=== PATIENT | male | born 1955 | race Caucasian/White ===

== ENCOUNTER 2019-02-02 12:11 | Observation (INO) ==
--- NOTE | 2019-02-02 12:23 | Emergency Department Note ---
Disposition Clinical Impression: Hypernatremia Chest pain Qualifiers: Chest pain type: unspecified Qualified Code(s): R07.9 - Chest pain, unspecified Disposition: Admitted As Inpatient Time of Disposition: 20:22 General Adult HPI - General Stated complaint: chest pain Time Seen by Provider: 02/02/19 12:21 - Related Data Home Medications Medication Instructions Recorded Confirmed Aspirin [Adult Aspirin] 81 mg PO DAILY 02/02/19 02/02/19 Atorvastatin [Lipitor] 80 mg PO HS 02/02/19 02/02/19 Clopidogrel [Plavix] 75 mg PO DAILY 02/02/19 02/02/19 Lisinopril [Zestril] 20 mg PO BID 02/02/19 02/02/19 Metoprolol [Lopressor] 50 mg PO DAILY 02/02/19 02/02/19 Omeprazole [PriLOSEC] 40 mg PO BID 02/02/19 02/02/19 Ranolazine [Ranexa] 1,000 mg PO BID 02/02/19 02/02/19 hydroCHLOROthiazide 25 mg PO DAILY 02/02/19 02/02/19 [Hydrochlorothiazide] Allergies Allergy/AdvReac Type Severity Reaction Status Date / Time No Known Allergies Allergy Verified 12/12/18 16:36 Past Medical History - Past Medical History Medical history: Reports: no medical history Psychiatric history: Reports: no psych history - Social History Smoking Status: Current every day smoker Smokeless Tobacco Status: No Alcohol use: Reports: none Drug use: Reports: none Course Vital Signs Temperature 98.3 F 02/02/19 12:34 Pulse Rate 63 02/02/19 12:34 Respiratory Rate 18 02/02/19 12:34 Blood Pressure 116/76 02/02/19 12:34 O2 Sat by Pulse Oximetry 97 02/02/19 12:34 Temperature 98.0 F 02/02/19 19:38 Pulse Rate 90 02/02/19 19:38 Respiratory Rate 16 02/02/19 19:38 Blood Pressure 103/62 02/02/19 19:38 O2 Sat by Pulse Oximetry 92 02/02/19 19:38 Oxygen Delivery Oxygen Delivery Room Air Medical Decision Making - Lab Data Result diagrams: 02/02/19 12:44 02/02/19 15:47 Lab Results 02/02/19 02/02/19 02/02/19 Range/Units 12:44 12:44 12:44 WBC 9.2 (4.3-11.1) K/mcL RBC 4.03 L (4.19-5.50) M/mcL Hgb 13.1 (12.9-16.9) g/dL Hct 37.4 L (37.5-50.1) % MCV 92.8 (83.0-100.0) fL MCH 32.5 (28.0-33.3) pg MCHC 35.0 (31.6-35.5) g/dL RDW 12.1 (11.5-14.5) % Plt Count 268 (140-400) K/mcL MPV 10.1 (9.4-12.4) fL Immature Gran % 0.9 (0-4) % Seg Neutrophils % 65.8 % Lymphocytes % 16.5 % Monocytes % 12.6 % Eosinophils % 3.4 % Basophils % 0.8 % Neutrophils # 6.1 (1.6-8.9) K/mcL Lymphocytes # 1.5 (0.6-4.6) K/mcL Monocytes # 1.2 (0.0-1.3) K/mcL Eosinophils # 0.3 (0.0-0.6) K/mcL Basophils # 0.1 (0.0-0.2) K/mcL Sodium 150 H (136-145) mEq/L Potassium 3.5 (3.5-5.1) mEq/L Chloride 75 L (98-107) mEq/L Carbon Dioxide 17 L (23-29) mEq/L BUN 15 (8-23) mg/dL Creatinine 0.89 (0.70-1.30) mg/dL Est GFR ( Amer) > 60 (> 60) Est GFR (Non-Af Amer) > 60 (> 60) BUN/Creatinine Ratio 17 (6-26) Glucose 82 (70-105) mg/dL Calculated Osmolality 310 H (280-300) Calcium 6.7 L (8.6-10.3) mg/dL Troponin I < 0.03 (< 0.04) ng/mL Lyme Total Antibody Negative (Negative) Attestation Statement - Attestation Attestation: I reviewed the residents documentation and agree with the residents assessment and plan of care. I have personally had face to face time with the patient. (Brief History, Brief Exam, and MDM) I personally supervised and was present for the resendiz/critical portions of the following procedures completed by the resident: (add procedures performed here). [id number] time provided I attest karriems supervising the resident physician's interpretation of the ECG. Patient presents by private vehicle chest discomfort. Known previous history of coronary artery disease. Appears in no acute distress on exam. EKG reviewed upon arrival
[2019-02-02] MEDS ORDERED: Aspirin 81 MG TAB.CHEW PO ONE (12:25)
[2019-02-02] MEDS ORDERED: Nitroglycerin 0.4 MG TAB.SUBL SL PRN (12:25)
--- NOTE | 2019-02-02 12:30 | Emergency Department Note ---
Disposition Clinical Impression: Hypernatremia Chest pain Qualifiers: Chest pain type: unspecified Qualified Code(s): R07.9 - Chest pain, unspecified Disposition: Admitted As Inpatient Referrals: Damion Santana DO [Primary Care Provider] - Time of Disposition: 14:15 General Adult HPI - General Stated complaint: chest pain Time Seen by Provider: 02/02/19 12:21 Source: patient Mode of arrival: ambulatory Limitations: no limitations Nursing Notes Reviewed: Yes Vital Signs Reviewed: Yes - History of Present Illness HPI Narrative: 63M with PMHx of CAD with 7 stents placed, the last being in March 2018, AAA with surgery and revision done several years ago, presents to the emergency department with chest and abdominal pain. Patient states that he has been feeling as though he had the flu over the past week with some headaches and neck pain that began experiencing chest pain earlier this morning. He also has been having some lower abdominal pain which was similar to before his AAA revision and he is worried about possible occlusion of his iliac arteries again. He has been having some intermittent right foot numbness with this abdominal pain. Patient has been feeling diaphoretic but denies nausea and vomiting. He has felt more short of breath than usual also. Patient took a baby aspirin prior to arrival along with his morning medications but has not taken a nitroglycerin today. - Related Data Home Medications Medication Instructions Recorded Confirmed Aspirin [Adult Aspirin] 81 mg PO DAILY 02/02/19 02/02/19 Atorvastatin [Lipitor] 80 mg PO HS 02/02/19 02/02/19 Clopidogrel [Plavix] 75 mg PO DAILY 02/02/19 02/02/19 Lisinopril [Zestril] 20 mg PO BID 02/02/19 02/02/19 Metoprolol [Lopressor] 50 mg PO DAILY 02/02/19 02/02/19 Omeprazole [PriLOSEC] 40 mg PO BID 02/02/19 02/02/19 Ranolazine [Ranexa] 1,000 mg PO BID 02/02/19 02/02/19 hydroCHLOROthiazide 25 mg PO DAILY 02/02/19 02/02/19 [Hydrochlorothiazide] Allergies Allergy/AdvReac Type Severity Reaction Status Date / Time No Known Allergies Allergy Verified 12/12/18 16:36 All systems ED: reviewed and negative except as stated. Review of Systems: As Per HPI Constitutional: Reports: weakness. Denies: fever, chills Cardiovascular: Reports: chest pain, dyspnea on exertion. Denies: palpitations Respiratory: Reports: dyspnea. Denies: cough, wheezes Gastrointestinal: Reports: abdominal pain. Denies: nausea, vomiting Musculoskeletal: Denies: back pain, neck pain Integumentary: Denies: rash Neurological: Reports: numbness. Denies: headache Endocrine: Reports: fatigue Past Medical History - Past Medical History Attestation: Yes The following information was validated with the patient. Source: patient Medical history: Reports: aortic aneurysm, coronary artery disease Psychiatric history: Reports: no psych history - Social History Smoking Status: Current every day smoker Smokeless Tobacco Status: No Alcohol use: Reports: none Drug use: Reports: none Physical Exam - General Limitations: no limitations General appearance: alert, in no apparent distress - Head Head exam: atraumatic, normocephalic - Eye Eye exam: Present: normal appearance, PERRL, EOMI - ENT ENT exam: normal exam, normal oropharynx - Neck Neck exam: Present: normal inspection. Absent: tenderness - Chest Chest inspection: Present: normal inspection. Absent: tenderness, rash - Respiratory Respiratory exam: Present: normal lung sounds bilaterally. Absent: wheezes - Cardiovascular Cardiovascular exam: Present: regular rate, normal rhythm - Abdominal Exam Abdominal exam: Present: soft, Non-Tender. Absent: distention, guarding, rebound, rigidity - Extremities Exam Extremities exam: Present: normal inspection. Absent: tenderness, pedal edema - Neurological Exam Neurological exam: Present: alert, oriented X3 - Psychiatric Psychiatric exam: Present: normal affect, normal mood - Skin Skin exam: Present: warm, dry, intact Course Vital Signs Temperature 98.3 F 02/02/19 12:34 Pulse Rate 63 02/02/19 12:34 Respiratory Rate 18 02/02/19 12:34 Blood Pressure 116/76 02/02/19 12:34 O2 Sat by Pulse Oximetry 97 02/02/19 12:34 Temperature 98.3 F 02/02/19 12:34 Pulse Rate 65 02/02/19 12:49 Respiratory Rate 18 02/02/19 12:49 Blood Pressure 126/79 02/02/19 12:49 O2 Sat by Pulse Oximetry 97 02/02/19 12:49 Oxygen Delivery Oxygen Delivery Room Air Medical Decision Making - MDM Narrative Medical decision making narrative: Patient with extensive cardiac history presents emergency department with chest pain and shortness of breath. We will do a cardiac workup on the patient and administer nitroglycerin to see if this helps with his chest pain. Pt is also concerned for Lyme disease as he states he has been bitten by several ticks recently. 1345 - patient's lab work is within normal limits including a negative Lyme titer. No acute abnormalities on chest x-ray. EKG is unchanged from previous. His pain was relieved temporarily by the nitroglycerin but he states now it is starting to come back. We will plan on admission to the hospital for cardiac workup and further treatment of this chest pain. Patient is agreeable with this plan of care. Hospitalist has been paged. [phone] - pt has been accepted to the hospital by Dr. Claudio - Medical Records Medical records reviewed: Yes I reviewed the patient's medical records. - Lab Data Lab results reviewed: Yes I reviewed the patient's lab results. Result diagrams: 02/02/19 12:44 02/02/19 12:44 Lab Results 02/02/19 02/02/19 02/02/19 Range/Units 12:44 12:44 12:44 WBC 9.2 (4.3-11.1) K/mcL RBC 4.03 L (4.19-5.50) M/mcL Hgb 13.1 (12.9-16.9) g/dL Hct 37.4 L (37.5-50.1) % MCV 92.8 (83.0-100.0) fL MCH 32.5 (28.0-33.3) pg MCHC 35.0 (31.6-35.5) g/dL RDW 12.1 (11.5-14.5) % Plt Count 268 (140-400) K/mcL MPV 10.1 (9.4-12.4) fL Immature Gran % 0.9 (0-4) % Seg Neutrophils % 65.8 % Lymphocytes % 16.5 % Monocytes % 12.6 % Eosinophils % 3.4 % Basophils % 0.8 % Neutrophils # 6.1 (1.6-8.9) K/mcL Lymphocytes # 1.5 (0.6-4.6) K/mcL Monocytes # 1.2 (0.0-1.3) K/mcL Eosinophils # 0.3 (0.0-0.6) K/mcL Basophils # 0.1 (0.0-0.2) K/mcL Sodium 150 H (136-145) mEq/L Potassium 3.5 (3.5-5.1) mEq/L Chloride 75 L (98-107) mEq/L Carbon Dioxide 17 L (23-29) mEq/L BUN 15 (8-23) mg/dL Creatinine 0.89 (0.70-1.30) mg/dL Est GFR ( Amer) > 60 (> 60) Est GFR (Non-Af Amer) > 60 (> 60) BUN/Creatinine Ratio 17 (6-26) Glucose 82 (70-105) mg/dL Calculated Osmolality 310 H (280-300) Calcium 6.7 L (8.6-10.3) mg/dL Troponin I < 0.03 (< 0.04) ng/mL Lyme Total Antibody Negative (Negative) - Radiology Data Radiology results reviewed: Yes I reviewed the patient's radiology results. - EKG Data EKG #1 EKG attestation: Yes I reviewed and interpreted this EKG. EKG results narrative: EKG obtained at 12:17 on 02/02/2019 Heart rate 69 bpm, AL interval 160, QRS duration 94, QTC 421, QTC 451 Sinus rhythm with left axis deviation. No ST segment elevations or depressions. No other signs of acute ischemia on EKG. no old EKG for comparison at this time. Heart Score - Score History: Moderately Suspicious EKG: Normal Age: 45-65 Risk Factors: Equal/Greater than 3 risk factor or history of atherosclerotic disease
[2019-02-02 13:04] LABS: Basophils # 0.1 K/mcL (0.0-0.2); Basophils % 0.8 %; Eosinophils # 0.3 K/mcL (0.0-0.6); Eosinophils % 3.4 %; Hematocrit 37.4 % (37.5-50.1); Hemoglobin 13.1 g/dL (12.9-16.9); Immature Granulocytes % 0.9 % (0-4); Lymphocytes # 1.5 K/mcL (0.6-4.6); Lymphocytes % 16.5 %; Mean Corpuscular Hemoglobin 32.5 pg (28.0-33.3); Mean Corpuscular Volume 92.8 fL (83.0-100.0); Mean Platelet Volume 10.1 fL (9.4-12.4); Monocytes # 1.2 K/mcL (0.0-1.3); Monocytes % 12.6 %; Neutrophils # 6.1 K/mcL (1.6-8.9); Platelet Count 268 K/mcL (140-400); Red Blood Count 4.03 M/mcL (4.19-5.50); Red Cell Distribution Width 12.1 % (11.5-14.5); Segmented Neutrophils % 65.8 %; White Blood Count 9.2 K/mcL (4.3-11.1)
[2019-02-02 13:25] LABS: BUN/Creatinine Ratio 17 (6-26); Blood Urea Nitrogen 15 mg/dL (8-23); Calcium 6.7 mg/dL (8.6-10.3); Carbon Dioxide 17 mEq/L (23-29); Chloride 75 mEq/L (98-107); Glucose 82 mg/dL (70-105); Osmolality,Calculated 310 (280-300); Potassium 3.5 mEq/L (3.5-5.1); Sodium 150 mEq/L (136-145); Troponin I < 0.03 ng/mL (< 0.04); eGFR For African Americans > 60 (> 60); eGFR For Non-African Americans > 60 (> 60)
[2019-02-02] MEDS ORDERED: Naloxone 0.4 MG/ML INJ IVP PRN (14:20)
[2019-02-02] MEDS ORDERED: Acetaminophen 325 MG TABLET PO PRN (14:20)
[2019-02-02] MEDS ORDERED: Ondansetron 4 MG/2 ML VIAL IVP PRN (14:20)
[2019-02-02] MEDS ORDERED: D5% in Water 1,000 ML IVC SCH (14:30)
--- NOTE | 2019-02-02 15:48 | Internal Med History&Physical ---
Date of Encounter: 02/02/19 Time of Encounter: 15:43 Internal Medicine - H&P: HPI Chief complaint: Chest pain Admitted From: Emergency Dept Plans for Post Hospital Care: Home History of present illness: Mr. Wise is a 63 year old male with a known past medical history of hypertension, hyperlipidemia, chronic tobacco dependence, CAD s/p PCI x 7 stents, AAA repair and revision who presented to ER with intermittent left chest wall pain from last 3 days. Pt stated he has been having intermittent CP, located left chest wall region, radiating to left shoulder, squeezing type of pain, and associated with SOB and nausea. He also mentioned mild lower abdominal discomfort. He does have multiple tick bites in the pelvic area lately when he was mowing a lawn at his newly bought property. In the ER his initial troponin was negative. His EKG did not show any acute ischemic changes. His his sodium was slightly elevated @ 150. Past Med Surg Social Fam HX - Past Medical History Medical history: aortic aneurysm, coronary artery disease Psychiatric history: no psych history - Social History Smoking Status: Current every day smoker (1 PPD) Smokeless Tobacco Status: No Alcohol use: none Drug use: none - Family History Mother Hx Family Respiratory Disorders: Yes (PE) Internal Medicine - H&P: Meds Aspirin [Adult Aspirin] 81 mg PO DAILY 02/02/19 [History] Atorvastatin [Lipitor] 80 mg PO HS 02/02/19 [History] Clopidogrel [Plavix] 75 mg PO DAILY 02/02/19 [History] Lisinopril [Zestril] 20 mg PO BID 02/02/19 [History] Metoprolol [Lopressor] 50 mg PO DAILY 02/02/19 [History] Omeprazole [PriLOSEC] 40 mg PO BID 02/02/19 [History] Ranolazine [Ranexa] 1,000 mg PO BID 02/02/19 [History] hydroCHLOROthiazide [Hydrochlorothiazide] 25 mg PO DAILY 02/02/19 [History] Allergy/AdvReac Type Severity Reaction Status Date / Time No Known Allergies Allergy Verified 12/12/18 16:36 All Systems PM: A 10-system review of systems was performed and is negative for pertinent findings except as documented above in the HPI. Review of systems: All the systems are reviewed everything is benign except the systems and symptoms I mentioned in the history of present illness - Constitutional Vitals: Temp Pulse Resp BP Pulse Ox 98.1 F 60 16 114/75 95 02/02/19 14:59 02/02/19 14:59 02/02/19 14:59 02/02/19 14:59 02/02/19 14:59 General appearance: Present: cooperative, A&O X 3, no acute distress, answers questions appropriately Exam: a - Head Head exam: Present: atraumatic, normal inspection - Neck Neck exam general surgery: Present: supple - Respiratory Respiratory exam: Present: decreased breath sounds. Absent: rales, respiratory distress, rhonchi, wheezes - Cardiovascular Cardiovascular exam: Present: RRR, +S1, +S2. Absent: tachycardia - GI/Abdominal GI/Abdominal exam: Present: normal bowel sounds, soft. Absent: guarding, rebound, rigid, tenderness - Extremities Exam Extremities exam: Present: normal inspection. Absent: calf tenderness, pedal edema, tenderness - Back Exam Back exam: Absent: CVA tenderness (L), CVA tenderness (R) - Neurological Exam Neurological exam: Present: alert, oriented X3 - Psychiatric Psychiatric exam: Present: normal affect, normal mood - Skin Skin exam: Present: rash (insect bites ) Internal Med - H&P Results - Labs CBC & Chem 7: 02/02/19 12:44 02/02/19 12:44 Labs: Short CBC 02/02/19 Range/Units 12:44 WBC 9.2 (4.3-11.1) K/mcL Hgb 13.1 (12.9-16.9) g/dL Hct 37.4 L (37.5-50.1) % Plt Count 268 (140-400) K/mcL Neutrophils # 6.1 (1.6-8.9) K/mcL BMP 02/02/19 12:44 Sodium 150 H Potassium 3.5 Chloride 75 L Carbon Dioxide 17 L BUN 15 Creatinine 0.89 Glucose 82 Calcium 6.7 L Cardiac Enzymes 02/02/19 Range/Units 12:44 Troponin I < 0.03 (< 0.04) ng/mL - Impressions ITS Impressions Chest X-Ray 02/02/19 12:25 IMPRESSION: No evidence of acute process. D/ / Aaron Beckford / Aaron Beckford Interpreting Provider: Aaron Beckford - Assessment and Plan (1) Chest pain Current Visit: Yes Status: Acute Assessment and plan: Will admit the pt into Tele for observation Will place pt on scraper hand check serial troponin so far negative troponin EKG reviewed - NSR, No ST T Changes Cont ASA, Plavix, Statin and BB Will check FLP in AM Will get stress test in AM since pt is high risk for ACS Qualifiers: Chest pain type: unspecified Qualified Code(s): R07.9 - Chest pain, unspecified (2) Hypernatremia Current Visit: Yes Status: Acute Assessment and plan: Due to dehydration and HCTZ usage held HCTZ started on IVF D5 with Water x 1 bag (3) CAD (coronary artery disease) Current Visit: Yes Status: Acute Assessment and plan: continue home meds ASA, Plavix, Statin and BB Qualifiers: Coronary Disease-Associated Artery/Lesion type: [place] artery [place] vs. transplanted heart: [place] heart Associated angina: with stable angina Qualified Code(s): I25.118 - Atherosclerotic heart disease of [place] coronary artery with other forms of angina pectoris (4) Tick bite Current Visit: Yes Status: Acute Assessment and plan: his bites look like insect bites no signs of lyme disease ordered Lyme serology will hold on abx for now Qualifiers: Encounter type: initial encounter Qualified Code(s): W57.XXXA - Bitten or stung by nonvenomous insect and other nonvenomous arthropods, initial encounter (5) HTN (hypertension) Current Visit: Yes Status: Acute Assessment and plan: resumed home meds Qualifiers: Hypertension type: essential hypertension Qualified Code(s): I10 - Essential (primary) hypertension (6) HLD (hyperlipidemia) Current Visit: Yes Status: Acute Assessment and plan: resumed home med Qualifiers: Hyperlipidemia type: unspecified Qualified Code(s): E78.5 - Hyperlipidemia, unspecified - Time Spent With Patient Total time spent is greater than 50% in coordination of care (as documented) at patient's floor/unit and/or counseling patient:
[2019-02-02 16:53] LABS: BUN/Creatinine Ratio 16 (6-26); Blood Urea Nitrogen 17 mg/dL (8-23); Calcium 9.5 mg/dL (8.6-10.3); Carbon Dioxide 27 mEq/L (23-29); Chloride 92 mEq/L (98-107); Glucose 86 mg/dL (70-105); Osmolality,Calculated 265 (280-300); Potassium 3.6 mEq/L (3.5-5.1); Sodium 127 mEq/L (136-145); eGFR For African Americans > 60 (> 60); eGFR For Non-African Americans > 60 (> 60)
[2019-02-02] MEDS: *HR* HYDROcodone/Acet 5/325 mg TABLET PO PRN (16:55)
[2019-02-02] MEDS ORDERED: Acetaminophen IV 500 MG/50 ML INFUS..BTL IVPB ONE (19:53)
[2019-02-02] MEDS: Lisinopril 20 MG TABLET PO SCH (20:53)
[2019-02-02] MEDS: Ranolazine 500 MG TAB.ER.12H PO SCH (20:53)
[2019-02-02 23:21] LABS: Sodium 124 mEq/L (136-145)
[2019-02-02 23:23] LABS: Troponin I < 0.03 ng/mL (< 0.04)
[2019-02-03 03:01] LABS: Hemoglobin 12.5 g/dL (12.9-16.9); Mean Corpuscular HGB Conc 34.7 g/dL (31.6-35.5); Mean Corpuscular Hemoglobin 33.3 pg (28.0-33.3); Mean Platelet Volume 10.5 fL (9.4-12.4); Platelet Count 243 K/mcL (140-400); Red Blood Count 3.75 M/mcL (4.19-5.50); Red Cell Distribution Width 12.1 % (11.5-14.5); White Blood Count 6.5 K/mcL (4.3-11.1)
[2019-02-03 03:10] LABS: BUN/Creatinine Ratio 13 (6-26); Blood Urea Nitrogen 16 mg/dL (8-23); Calcium 8.9 mg/dL (8.6-10.3); Carbon Dioxide 25 mEq/L (23-29); Chloride 95 mEq/L (98-107); Chol/HDL Ratio 4.8 (0-4.9); Cholesterol 110 mg/dL (< 200); Glucose 119 mg/dL (70-105); HDL Cholesterol 23 mg/dL (40-59); LDL Cholesterol,Calculated 65 mg/dL (0-99); Magnesium 1.6 mg/dL (1.6-2.6); Osmolality,Calculated 260 (280-300); Potassium 3.5 mEq/L (3.5-5.1); Sodium 124 mEq/L (136-145); Triglycerides 112 mg/dL (< 150); eGFR For African Americans > 60 (> 60); eGFR For Non-African Americans > 60 (> 60)
[2019-02-03] MEDS: *HR* HYDROcodone/Acet 5/325 mg TABLET PO PRN ×2 (03:29→23:48)
[2019-02-03] MEDS ORDERED: Regadenoson 0.4 MG/5 ML SYRINGE IVP ONE (06:24)
[2019-02-03] MEDS: Ranolazine 500 MG TAB.ER.12H PO SCH ×2 (08:47→20:36)
[2019-02-03] MEDS: Aspirin Enteric Coated 81 MG Tablet PO SCH (08:49)
[2019-02-03] MEDS: Lisinopril 20 MG TABLET PO SCH ×2 (08:49→20:39)
[2019-02-03] MEDS ORDERED: Ibuprofen 600 MG TABLET PO ONE (08:54)
[2019-02-03] MEDS: 0.9 % Sodium Chloride 1,000 ML IVC SCH ×2 (11:39→23:48)
--- NOTE | 2019-02-03 12:58 | Internal Med Progress Note ---
Hospitalist Progress Note - Encounter Date of Encounter: 02/03/19 Time of Encounter: 09:00 - Subjective Interval History: Mr. Wise is a 63 year old male with a known past medical history of hypertension, hyperlipidemia, chronic tobacco dependence, CAD s/p PCI x 7 stents, AAA repair and revision who presented to ER with intermittent left chest wall pain from last 3 days. Pt stated he has been having intermittent CP, located left chest wall region, radiating to left shoulder, squeezing type of pain, and associated with SOB and nausea. He also mentioned mild lower abdominal discomfort. He does have multiple tick bites in the pelvic area lately when he was mowing a lawn at his newly bought property. In the ER his initial troponin was negative. His EKG did not show any acute ischemic changes. His his sodium was slightly elevated @ 150. 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 His his serial troponin came back is negative. He still complaining about dull achy chest pain located left chest wall region. He also c/o b/l groin discomfort. - Exam Vitals: Temp Pulse Resp BP Pulse Ox 97.8 F 64 16 111/74 94 02/03/19 11:01 02/03/19 11:01 02/03/19 11:01 02/03/19 11:01 02/03/19 11:01 Exam: Gen: Alert, awake, Oriented to time,place and person Chest: Diminished breath sounds B/L, No wheezing, No crackles, No rales Heart: S1S2+ RRR No murmurs Abd: Soft, NT, BS +, No organomegaly Ext: No edema, pulses are palpable, No calf tenderness Neuro : No acute focal neuro deficits noticed Skin: Insect bite salazar in pelvic region - Assessment and Plan (1) Chest pain Current Visit: Yes Status: Acute Assessment and Plan: Her serial troponin x 3 negative No acute EKG changes Cont ASA, Plavix, Statin and BB Cont Ranexa Reviewed his FLP His nuclear stress test came back as negative for ischemia / infarction However he still c/o angina equivalent chest pain , consulted cardiology for further eval (2) Hyponatremia Current Visit: Yes Status: Acute Assessment and Plan: Due to dehydration and HCTZ started on NS @ 125 ml/hr close monitoring of Na this morning Na @ 124 our goal of correction 0.5 meq/hr, not more than 8-10 meq/day (3) Hypernatremia Current Visit: Yes Status: Ruled-out Assessment and Plan: Seems to be it was lab error since his repeat Na came down to 127 (4) CAD (coronary artery disease) Current Visit: Yes Status: Acute Assessment and Plan: continue home meds ASA, Plavix, Ranexa, Statin and BB (5) Tick bite Current Visit: Yes Status: Acute Assessment and Plan: his bite salazar look like insect bites no signs of lyme disease ordered Lyme serology Lyme ab came back as negative will hold on abx for now (6) HTN (hypertension) Current Visit: Yes Status: Acute Assessment and Plan: resumed home meds (7) HLD (hyperlipidemia) Current Visit: Yes Status: Acute Assessment and Plan: resumed home med (8) S/P AAA (abdominal aortic aneurysm) repair Current Visit: Yes Status: Chronic Assessment and Plan: will order CTA of abd and plevis once cardiology decides about LHC - Time Spent with Patient Total time spent is greater than 50% in coordination of care (as documented) at patient's floor/unit and/or counseling patient: Internal Medicine: Result - Labs CBC & Chem 7: 02/03/19 02:14 02/03/19 02:14 Labs: Short CBC 02/02/19 02/03/19 Range/Units 12:44 02:14 WBC 9.2 6.5 (4.3-11.1) K/mcL Hgb 13.1 12.5 L (12.9-16.9) g/dL Hct 37.4 L 36.0 L (37.5-50.1) % Plt Count 268 243 (140-400) K/mcL Neutrophils # 6.1 (1.6-8.9) K/mcL BMP 02/02/19 02/02/19 02/02/19 12:44 15:47 22:52 Sodium 150 H 127 L D 124 L Potassium 3.5 3.6 Chloride 75 L 92 L Carbon Dioxide 17 L 27 BUN 15 17 Creatinine 0.89 1.09 Glucose 82 86 Calcium 6.7 L 9.5 02/03/19 02:14 Sodium 124 L Potassium 3.5 Chloride 95 L Carbon Dioxide 25 BUN 16 Creatinine 1.20 Glucose 119 H Calcium 8.9 Cardiac Enzymes 02/02/19 02/02/19 02/02/19 Range/Units 12:44 15:47 22:52 Troponin I < 0.03 < 0.03 < 0.03 (< 0.04) ng/mL - Impressions Impressions Chest X-Ray 02/02/19 12:25 IMPRESSION: No evidence of acute process. D/ / Aaron Beckford / Aaron Beckford Interpreting Provider: Aaron Beckford Consult Discharge Plan - Plan Referrals: Damion Santana DO [Primary Care Provider] - 02/05/19 1:00 pm ([place] arrive 10 minutes early to appointment. ) (1) Chest pain Qualifiers: Chest pain type: unspecified Qualified Code(s): R07.9 - Chest pain, unspecified (4) CAD (coronary artery disease) Qualifiers: Coronary Disease-Associated Artery/Lesion type: three affiliated artery [place] vs. transplanted heart: three affiliated heart Associated angina: with stable angina Qualified Code(s): I25.118 - Atherosclerotic heart disease of three affiliated coronary artery with other forms of angina pectoris (5) Tick bite Qualifiers: Encounter type: initial encounter Qualified Code(s): W57.XXXA - Bitten or stung by nonvenomous insect and other nonvenomous arthropods, initial encounter (6) HTN (hypertension) Qualifiers: Hypertension type: essential hypertension Qualified Code(s): I10 - Essential (primary) hypertension (7) HLD (hyperlipidemia) Qualifiers: Hyperlipidemia type: unspecified Qualified Code(s): E78.5 - Hyperlipidemia, unspecified
[2019-02-04 05:16] LABS: BUN/Creatinine Ratio 18 (6-26); Blood Urea Nitrogen 21 mg/dL (8-23); Calcium 8.5 mg/dL (8.6-10.3); Carbon Dioxide 23 mEq/L (23-29); Chloride 103 mEq/L (98-107); Glucose 91 mg/dL (70-105); Magnesium 1.8 mg/dL (1.6-2.6); Osmolality,Calculated 273 (280-300); Potassium 4.1 mEq/L (3.5-5.1); Sodium 130 mEq/L (136-145); eGFR For African Americans > 60 (> 60); eGFR For Non-African Americans > 60 (> 60)
[2019-02-04] MEDS: Lisinopril 20 MG TABLET PO SCH (08:36)
[2019-02-04] MEDS: *HR* HYDROcodone/Acet 5/325 mg TABLET PO PRN (08:36)
[2019-02-04] MEDS: Ranolazine 500 MG TAB.ER.12H PO SCH (08:37)
[2019-02-04] MEDS: Aspirin Enteric Coated 81 MG Tablet PO SCH (08:37)
[2019-02-04] MEDS: 0.9 % Sodium Chloride 1,000 ML IVC SCH (08:38)
--- NOTE | 2019-02-04 10:31 | Cardiology Consult Note ---
<Sigifredo Stevens - Last Filed: 02/04/19 10:56> Date of Encounter: 02/04/19 Time of Encounter: 10:29 Assessment and Plan (1) Chest pain Current Visit: Yes Status: Acute Intermittent left chest wall pain x 3 days. Described as constant, radiating to left shoulder, squeezing, associated with SOB and nausea. Similar to prior anginal equivalent. Troponins negative, underwent nuclear stress test yesterday that was negative for ischemia or infarct. Reports [facility] 03/2018 at [place] with PCI x2. He continues to have chest pain despite a negative stress test. Given concerns for unstable angina, would recommend [facility]. R/B/A discussed. He agrees to proceed. Will discuss and review with Dr. Brizuela. Qualifiers: Chest pain type: unspecified Qualified Code(s): R07.9 - Chest pain, unspec ified (2) CAD (coronary artery disease) Current Visit: Yes Status: Acute Hx PCI. ASA, Statin, Plavix, BB, Ranexa, ACEi. Qualifiers: Coronary Disease-Associated Artery/Lesion type: [place] artery [place] vs. transplanted heart: [place] heart Associated angina: with stable angina Qualified Code(s): I25.118 - Atherosclerotic heart disease of [place] coronary artery with other forms of angina pectoris Discussion w patient/family: The assessment and plan as outlined above was discussed with the patient and/or family members who expressed understanding and agreement. All questions were answered. Thank you for involving us in the care of your patient. Please call with any questions. I will discuss all the above with Dr. Brizuela and make changes as necessary. History of Present Illness Consult date: 02/04/19 Requesting physician: Mary Pryor Consult reason: chest pain Chief complaint: chest pain History of present illness: Mr. Wise is a 63 year old male with PMH of HTN, HLD, chronic tobacco dependence, CAD s/p PCI x 7 stents, AAA repair and revision who presented to ER with intermittent left chest wall pain from last 3 days. Pt stated he has been having constant CP, located left chest wall region, radiating to left shoulder, squeezing type of pain, and associated with SOB and nausea. He states nitro takes the edge off. Similar to prior anginal equivalent. Troponins negative, underwent nuclear stress test yesterday that was negative for ischemia or infarct. Reports his most recent [facility] was 03/2018 at [place] with PCI x2. He continues to have chest pain despite a negative stress test and cardiology was consulted for further recs. Past Med Surg Social Fam HX - Past Medical History Medical history: aortic aneurysm, coronary artery disease, hypertension Additional medical history: LASHONDA, Psychiatric history: no psych history - Past Surgical History Additional surgical history: AAA repairs, stentsX7, inguinal hernia repair, neck sx, carpal tunnel, septum sx. - Social History Smoking Status: Current every day smoker (1 PPD) Packs per day: 1.5 Smokeless Tobacco Status: No Alcohol use: none Drug use: none - Family History Mother Hx Family Respiratory Disorders: Yes Medications and Allergies Aspirin [Adult Aspirin] 81 mg PO DAILY 02/02/19 [History] Atorvastatin [Lipitor] 80 mg PO HS 02/02/19 [History] Clopidogrel [Plavix] 75 mg PO DAILY 02/02/19 [History] Lisinopril [Zestril] 20 mg PO BID 02/02/19 [History] Omeprazole [PriLOSEC] 40 mg PO BID 02/02/19 [History] Ranolazine [Ranexa] 1,000 mg PO BID 02/02/19 [History] Metoprolol Succinate [Toprol Xl] 50 mg PO DAILY 02/03/19 [History] Tramadol HCl [Ultram] 50 mg PO TID PRN 5 Days #15 tab 02/04/19 [Rx] Allergy/AdvReac Type Severity Reaction Status Date / Time No Known Allergies Allergy Verified 02/03/19 10:48 All Systems Review: The remainder of the systems were reviewed and are negative - Cardiovascular Cardiovascular: as per HPI, chest pain at rest, chest pain with exertion, radiating jaw, neck or arm pain Physical Examination Vital Signs, Last 4 Hours Temp Pulse Resp BP Pulse Ox 02/04/19 06:53 97.9 F 60 16 117/74 96 Vital Signs Temp Pulse Resp BP Pulse Ox 02/04/19 06:53 97.9 F 60 16 117/74 96 02/04/19 03:18 97.9 F 58 16 100/62 92 02/03/19 22:58 98 F 61 16 104/61 95 02/03/19 18:55 98.5 F 55 16 100/64 92 02/03/19 16:09 98.0 F 56 16 100/66 94 02/03/19 11:01 97.8 F 64 16 111/74 94 Intake and Output 02/03/19 02/04/19 02/04/19 23:59 07:59 15:59 Intake Total 2130 / 4090 1000 / 1000 Output Total 360 / 360 Balance 2130 / 3190 -360 / 640 1000 / 640 Intake: IV Fluids 1000 / 2000 1000 / 1000 0.9 % Sodium Chloride 1,000 ML 1000 / 1000 1000 / 1000 @ 100 mls/hr IVC .Q10H [facility] Rx#: [id number] Oral 1130 / 2090 Output: Urine 360 / 360 Other: Meal Dinner Percent of Meal Consumed 90% Weight 77 kg Patient Weight 02/04/19 23:59 Weight 77 kg General: Conversant, No Apparent Distress HEENT: Atraumatic, Normocephaly, Mucus Membranes Moist Neck: No JVD, Normal carotid pulses Cardiac: Reg Rate and Rhythm, Normal S1 and S2, No Murmur Lungs: Normal Breath Sounds, No Wheeze, Rales, Rhonchi Neuro: Alert and responsive, No focal deficits noted Abdomen: Soft, Non-Tender Skin: No rashes noted on visualized skin Musculoskeletal: No Chest Wall Tenderness Extremities: No Clubbing, No Cyanosis, No Edema, Normal Pulses Results 02/03/19 02:14 02/04/19 03:14 Lab Results 02/03/19 02/03/19 02/04/19 16:05 22:04 03:14 Sodium 124 L 130 L 130 L Potassium 4.1 Chloride 103 Carbon Dioxide 23 BUN 21 Creatinine 1.16 Glucose 91 Calcium 8.5 L Magnesium 1.8 BMP 02/04/19 02/03/19 02/03/19 Range/Units 03:14 22:04 16:05 Sodium 130 L 130 L 124 L (136-145) mEq/L Potassium 4.1 (3.5-5.1) mEq/L Chloride 103 (98-107) mEq/L Carbon Dioxide 23 (23-29) mEq/L BUN 21 (8-23) mg/dL Creatinine 1.16 (0.70-1.30) mg/dL Glucose 91 (70-105) mg/dL Calcium 8.5 L (8.6-10.3) mg/dL Impressions Echocardiogram 02/03/19 15:13 Impressions: LVEF 55-60%. Normal LV chamber size, wall thickness and function. Normal left ventricular diastolic function. Normal right ventricular structure and function. No significant valvular dysfunction. Unable to estimate RVSP due to lack of TR jet. Left Ventricular Wall Motion: Rest Echo Findings All wall segments showed normal motion. Findings: Study Quality * Technically adequate exam. ECG Findings * Sinus bradycardia. Left Ventricle * LVEF 55-60%. * Normal LV chamber size, wall thickness and function. * Normal left ventricular diastolic function. Right Ventricle * Normal right ventricular structure and function. Left Atrium * Normal left atrial size. Right Atrium * Normal right atrial size. Interatrial Septum * No evidence of PFO by color Doppler. Aortic Valve * Trileaflet aortic valve with normal function. Mitral Valve * Normal mitral valve structure and function. Tricuspid Valve * Trace tricuspid regurgitation. * Unable to estimate RVSP due to lack of TR jet. * No tricuspid stenosis. * Normal tricuspid valve structure. Pulmonic Valve * No pulmonic regurgitation. Aorta * Normally sized aortic root. Pericardium * The pericardium appears normal. IVC * Normal IVC dimensions and inspiratory collapse. Pulmonary Artery * Normal visualized portions of the main pulmonary artery. Active Medications Acetaminophen (Tylenol) 650 mg PO Q6HR PRN PRN Reason: Mild Pain/Fever Stop: 08/04/19 14:21 Hydrocodone Bitart/Acetaminophen ([place] 5-325 Mg) 1 tab PO Q6HR PRN PRN Reason: Moderate Pain Stop: 08/04/19 14:21 Last Admin: 02/04/19 08:36 Dose: 1 tab Documented by: Aspirin (Aspirin Ec) 81 mg PO DAILY [facility] Stop: 08/05/19 09:01 Last Admin: 02/04/19 08:37 Dose: 81 mg Documented by: Atorvastatin Calcium (Lipitor) 80 mg PO HS [facility] Stop: 08/04/19 21:01 Last Admin: 02/03/19 20:36 Dose: 80 mg Documented by: Clopidogrel Bisulfate (Plavix) 75 mg PO DAILY [facility] Stop: 08/05/19 09:01 Last Admin: 02/04/19 08:37 Dose: 75 mg Documented by: Sodium Chloride (0.9 % Sodium Chloride) 1,000 mls @ 100 mls/hr IVC .Q10H [facility] Stop: 08/05/19 11:16 Last Admin: 02/04/19 08:38 Dose: 100 mls/hr Documented by: Lisinopril (Zestril) 20 mg PO BID [facility]; Protocol Stop: 08/04/19 21:01 Last Admin: 02/04/19 08:36 Dose: 20 mg Documented by: Metoprolol Tartrate (Lopressor) 50 mg PO DAILY [facility] Stop: 08/05/19 09:01 Last Admin: 02/04/19 08:37 Dose: 50 mg Documented by: Naloxone HCl (Narcan) 0.4 mg IVP Q2MPRN PRN PRN Reason: SEE COMMENTS Stop: 08/04/19 14:21 Nitroglycerin (Nitroglycerin) 0.4 mg SL Q5MIN PRN PRN Reason: Chest Pain Stop: 08/04/19 12:26 Last Admin: 02/02/19 12:49 Dose: 0.4 mg Documented by: Omeprazole (Prilosec) 40 mg PO BID [facility] Stop: 08/04/19 21:01 Last Admin: 02/04/19 08:37 Dose: 40 mg Documented by: Ondansetron HCl (Zofran) 4 mg IVP Q8HR PRN PRN Reason: Nausea And Vomiting Stop: 08/04/19 14:21 Ranolazine (Ranexa) 1,000 mg PO BID [facility] Stop: 08/04/19 21:01 Last Admin: 02/04/19 08:37 Dose: 1,000 mg Documented by: - Imaging and Cardiology Stress Test: report reviewed Echo: report reviewed - EKG Interpretation EKG results cardiology: personally reviewed (SR) Consult Discharge Plan - Plan Referrals: Damion Santana DO [Primary Care Provider] - 02/05/19 1:00 pm (Manjinder arrive 10 minutes early to appointment. ) Leonardo Oneill MD [Partnered Physician] - (Appointment has been requested.) Prescriptions: Tramadol HCl [Ultram] 50 mg PO TID PRN 5 Days #15 tab PRN Reason: Headache <JanisgreyTomasa - Last Filed: 02/04/19 16:41> Date of Encounter: 02/04/19 - Attending Attestation I examined this patient and my medical decision-making was reviewed with the SOLAR THERMAL TECHNICIAN. I agree with the documented findings, disposition and treatment plan as described. Assessment and Plan Discussion w patient/family: The assessment and plan as outlined above was discussed with the patient and/or family members who expressed understanding and agreement. All questions were answered. Thank you for involving us in the care of your patient. Please call with any questions. History of Present Illness History of present illness: Mr. Wise is a 63 year old male All Systems Review: The remainder of the systems were reviewed and are negative Physical Examination Vital Signs, Last 4 Hours Temp Pulse Resp BP Pulse Ox 02/04/19 16:12 98 F 60 16 123/78 96 02/04/19 15:52 60 02/04/19 15:34 61 02/04/19 15:20 98 F 59 16 134/81 97 02/04/19 15:00 58 16 109/73 96 02/04/19 14:46 97.7 F 54 16 112/76 95 02/04/19 14:30 97.7 F 55 16 106/69 95 02/04/19 14:15 97.7 F 54 16 98/66 95 Results 02/04/19 12:16 02/04/19 03:14 Lab Results 02/03/19 02/03/19 02/04/19 16:05 22:04 03:14 WBC Hgb Hct Plt Count INR Sodium 124 L 130 L 130 L Potassium 4.1 Chloride 103 Carbon Dioxide 23 BUN 21 Creatinine 1.16 Glucose 91 Calcium 8.5 L Magnesium 1.8 02/04/19 02/04/19 12:16 12:16 WBC 6.1 Hgb 12.9 Hct 37.9 Plt Count 241 INR 1.0 Sodium Potassium Chloride Carbon Dioxide BUN Creatinine Glucose Calcium Magnesium
--- NOTE | 2019-02-04 11:40 | Event Note ---
Date of Encounter: 02/04/19 Time of Encounter: 11:39 HAS-BLED Score - Score Elderly: Age>65 years Medication usage predisposing to bleeding: Antiplatelet agents, NSAIDs, Anticoagulants Score: 2
--- NOTE | 2019-02-04 11:57 | Pre-Sedation Evaluation ---
Pre-sedation evaluation - Pre-sedation checklist Date of procedure: 02/04/19 Procedure: [facility] Recent Vitals: Last Vital Signs Temp 98.1 F 02/04/19 11:13 Pulse 54 02/04/19 11:13 Resp 16 02/04/19 11:13 BP 114/74 02/04/19 11:13 Pulse Ox 95 02/04/19 11:13 H&P (including ROS) documented in medical record: Yes Previous reaction to sedatives/anesthetics: No Dietary Status: NPO after Midnight Airway Assessment: Patient can open mouth completely, TMJ function normal Dentition: No loose teeth or bridges Possible difficult airway: No ASA Classification *see protocol: CLASS II-Mild systemic disease Cardiac Registry (Cardio Only) - Functional Capacity Functional Capacity: >=4 METS with symptoms - Clincal Frailty Scale Clinical Frailty Scale: Well
[2019-02-04 12:31] LABS: Basophils # 0.1 K/mcL (0.0-0.2); Basophils % 0.8 %; Eosinophils # 0.3 K/mcL (0.0-0.6); Eosinophils % 4.6 %; Hematocrit 37.9 % (37.5-50.1); Hemoglobin 12.9 g/dL (12.9-16.9); Immature Granulocytes % 1.1 % (0-4); Lymphocytes # 1.4 K/mcL (0.6-4.6); Lymphocytes % 22.5 %; Mean Corpuscular Hemoglobin 33.3 pg (28.0-33.3); Mean Corpuscular Volume 97.9 fL (83.0-100.0); Mean Platelet Volume 10.1 fL (9.4-12.4); Monocytes % 15.5 %; Neutrophils # 3.4 K/mcL (1.6-8.9); Platelet Count 241 K/mcL (140-400); Red Blood Count 3.87 M/mcL (4.19-5.50); Red Cell Distribution Width 12.4 % (11.5-14.5); Segmented Neutrophils % 55.5 %; White Blood Count 6.1 K/mcL (4.3-11.1)
[2019-02-04 12:49] LABS: Prothrombin Time 11.5 Seconds (9.4-12.1)
[2019-02-04] MEDS ORDERED: *HR* Heparin 10,000 UNIT/10 ML VIAL ONE (12:58)
[2019-02-04] MEDS ORDERED: 0.9 % Sodium Chloride 1,000 ML ONE (12:58)
[2019-02-04] MEDS ORDERED: Heparin 1,000 UNITS/500 mL 500 ML ONE (12:58)
[2019-02-04] MEDS ORDERED: ISOVUE-370 200 ML INFUS..BTL ONE (12:58)
[2019-02-04] MEDS ORDERED: Nitroglycerin 1,000 MCG/10 ML VIAL IV ONE (12:58)
[2019-02-04] MEDS ORDERED: *HR* Midazolam HCl 2 MG/2 ML VIAL ONE (13:33)
--- NOTE | 2019-02-04 14:00 | Event Note ---
Date of Encounter: 02/04/19 Time of Encounter: 13:59 - Cardiology Event Note Cath Completed LVEF 45% anterior hypokinesis RCA _ mild plaque LCA- No stent restenosis in circ or lad. recommend Non cardiac evaluation .
--- NOTE | 2019-02-04 14:18 | Invasive Diagnostic Lab Proc ---
Name: Damion Wise Date of Study: 02/04/2019 Date: 1955 Ht: 70.1in Medical Record#: [id number] Age: 63 Wt: 169.76lb Gender: Male BSA: 1.95 Order #: [id number] BMI: 24.3 Physicians Procedure Physician: Walter Darby MD Referring MD: Referring MD: Staff Name Position Time In BowserGail RT (R) Scrub 01:37 PM Arsen Henley RN Machine Preservative Filler 01:37 PM Elpidio Bain RT (R) Monitor 01:37 PM Indications Indication Other-Abnormal Test - Stress Procedures Performed Procedure L HRT ARTERY/VENTRICLE ANGIO Pre-Procedure Checklist Informed consent is complete signed and on chart. H&P is on chart. ID band is on and ID verified with patient. Patient NPO for procedure The procedure was described for the patient and questions were answered. Blood Pressure: 114/74 ECG is on chart. Rhythm: NSR Plan of Care Patient will tolerate the procedure without complications. Adequate level of comfort will be maintained. Hemodynamics will remain stable Patient will recover from procedure without complications. Respiratory function will be maintained. Cardiac rhythm will remain stable. Patient temperature will be maintained. Patient and/or family have verbalized understanding of the procedure. Patient Education Chief Complaint/Reason for Test: Cardiac Cath Developmental Category: Geriatric (65+ years) Developmentally Appropriate for Age: Yes Learning Barriers: None Education Needs: Procedure Education Method: Verbal Information Taught: Cardiac Cath Educational Evaluation: Able to repeat information Intravenous Access Time IV Size Location DC'd Fluid/Drip Rate Units RN 01:36 PM 20g 1 06/27" Patent On Arrival Lt Arm 0.9NaCl 25 Arsen Henley RN Allergies No Known Allergies Vital Signs Time BP (mmHg) HR (bpm) O2 Sat. RR (bpm) LOC 01:37 PM / % 5 = Fully awake and oriented or at pre-proc level 01:37 PM / % 4 = Oriented but drowsy 01:40 PM 142 / 83 60 98 % 25 01:44 PM 110 / 63 55 98 % 17 01:49 PM 92 / 58 55 84 % 17 01:51 PM 85 / 56 63 77 % 22 01:53 PM 91 / 56 63 74 % 17 01:58 PM 96 / 58 % 01:52 PM / % 5 = Fully awake and oriented or at pre-proc level Procedural Medications Time Medication Dose Units Method Given By :37 PM Oxygen 2 L/min nasal cannula Arsen Henley RN 01:37 PM Versed 2 mg Intravenous Arsen Henley RN 01:45 PM Lidocaine 2% 2 ml Subcutaneous Walter Darby MD 01:47 PM Heparin 4000 units Nitroglycerin 200 mcg Verapamil 2.5 mg Intraarterial Walter Darby MD ASA Classification: CLASS II- Mild systemic disease (i.e. well-controlled diabetes, hypertension, asthma, cigarette smoking) Omer Score Preprocedure Postprocedure Activity 2- Moves 4 extremities sustained head lift Activity 2- Moves 4 extremities sustained head lift Circulation 2- SBP +/= 20 points of pre-anesthetic level Circulation 2- SBP +/= 20 points of pre-anesthetic level Consciousness 2- Awake and alert oriented x 3 Consciousness 2- Awake and alert oriented x 3 O2 Saturation 2- Able to maintain O2 satruation of 92% on room air O2 Saturation 2- Able to maintain O2 satruation of 92% on room air Respiratory 2- Able to deep breathe and cough well Respiratory 2- Able to deep breathe and cough well Total Score 10 Total Score 10 Contrast Agent: Isovue Diagnostic Contrast: 60 ml Total Contrast: 60 ml Fluoro Dose: 13 mGy Procedure Log Time Note Enter By 01:35 PM CathStat 01:36 PM Pt arrived to laboratory technology teacher 2 at 13:36 36 PM Patient charges- Angio tray pack, Navilyst 3mm J, Pulse Oximetry and ACIST tubing and transducer PM Case Delayed No PM Physician arrived 13:37 PM ASA Class CLASS II- Mild systemic disease (i.e. well-controlled diabetes, hypertension, asthma, cigarette smoking) PM Meet and greet completed PM Sign in performed according to hospital policy. Informed consent was obtained. PM Procedure start 13:37 PM Time: 13:37 Patient comfortable and pain free: Yes PM Time: 13:37LOC: 5 = Fully awake and oriented or at pre-proc level PM Time: 13:37 Oxygen on at 2 L/min per nasal cannula by Arsen Henley RN 01:37 PM Time: 13:37 Versed 2 mg Intravenous Given by Arsen Henley RN :37 PM Gail Bowser RT (R) Position: Scrub Time in: 13:37 [email or web address] 01:37 PM Arsen Henley RN Position: Machine Preservative Filler Time in: :37 :38 PM Elpidio Bain RT (R) Position: Monitor Time in: :37 :38 PM Hair removed from procedure site in procedure lab using clippers. Right wrist and Right groin prepped with Chloraprep by , then patient was draped. Skin intact. :38 PM Vitals capture started with the following parameters, Patient=Adult, Interval=5 min, Initial Zmnarpwz=192 mmHg, Deflation Rate=3 mmHg, Cuff placed on Right Arm 01:38 PM Recorded ECG: HR=59 Condition=Condition 1 01:40 PM HR=60 bpm, UEAG=823/83 mmhg, SpO2=98.0 %, Resp=25 B/min 01:44 PM HR=55 bpm, XDGI=027/63 mmhg, SpO2=98.0 %, Resp=17 B/min 01:45 PM Time out was performed according to hospital policy. Conscious sedation and anesthesia was achieved (see medication log with in this report above) [email or web address] 01:46 PM Time: 13:45 2 ml Lidocaine 2% to right radial Subcutaneous Given by Walter Darby MD [email or web address] 01:47 PM Access obtained by percutaneous puncture. 6Fr 10cm Terumo Glidesheath sheath placed in right Radial artery. [id number] [email or web address] 01:47 PM 0.035 260cm Navilyst 3mmJ wire [id number] [email or web address] 01:48 PM Pressure channel 2 zeroed. 01:48 PM Time: 13:47 Patient given 4,000 units Heparin, 200 mcg Nitroglycerin, and 2.5 mg Verapamil Intraarterial by Walter Darby MD. This is given to reduce risk of vessel spasm and thrombosis. [email or web address] 01:49 PM HR=55 bpm, NIBP=92/58 mmhg, SpO2=84.0 %, Resp=17 B/min 01:49 PM 5Fr FL 3.5 catheter inserted over the wire DNC [email or web address] 01:50 PM Vitals capture stopped. 01:50 PM Vitals capture started with the following parameters, Patient=Adult, Interval=5 min, Initial Uxdmhkap=133 mmHg, Deflation Rate=3 mmHg, Cuff placed on Right Arm 01:50 PM LCA angiography performed in multiple views. [email or web address] 01:50 PM Recorded Pressure: Ao, HR=60, Condition=Condition 1 (Aorta) Ao 108/81/93 01:51 PM HR=63 bpm, NIBP=85/56 mmhg, SpO2=77.0 %, Resp=22 B/min 01:51 PM Catheter removed [email or web address] 01:52 PM Pressure channel 2 zero failed. 01:52 PM Pressure channel 2 zeroed. 01:52 PM Time: 13:37LOC: 4 = Oriented but drowsy [email or web address] :52 PM Time: 13:37 Patient comfortable and pain free: Yes [email or web address] 01:52 PM Vitals capture stopped. 01:52 PM Vitals capture started with the following parameters, Patient=Adult, Interval=5 min, Initial Alnsilyx=546 mmHg, Deflation Rate=3 mmHg, Cuff placed on Right Arm 01:53 PM 5Fr FR 4 catheter inserted over the wire [facility] [email or web address] 01:53 PM Catheter crossed the aortic valve and was selectively placed in the left ventricle. Pressures recorded on pullback for left heart catheterization. [email or web address] 01:53 PM Recorded Pressure: LV, HR=62, Condition=Condition 1 (Left Ventricle) LV 90/9/14 01:53 PM HR=63 bpm, NIBP=91/56 mmhg, SpO2=74.0 %, Resp=17 B/min 01:53 PM Recorded Pressure: LV, HR=62, Condition=Condition 1 (Left Ventricle) LV 79/3/9 01:54 PM Recorded Pressure: LV, Ao, HR=60, Condition=Condition 1 (Left Ventricle) LV 90/11/17, (Aorta) Ao 87/57/71 01:54 PM hand injected LV gram [email or web address] 01:54 PM RCA angiography performed in multiple views. [email or web address] 01:54 PM Recorded Pressure: Ao, HR=62, Condition=Condition 1 (Aorta) Ao 95/63/77 01:54 PM Coronary Dominance: right [email or web address] 01:55 PM Catheter removed [email or web address] 01:56 PM Arterial sheath pulled, Vasc Band closure device used and was Successful S/N. [email or web address] 01:56 PM 12 ml air in Vasc Band. [email or web address] 01:56 PM Procedure completed at 13:56 02/04/2019 [email or web address] 01:57 PM Sign out completed: Radiation Dose 131.88 mGy, 13.0 Gy/cm2 Fluoro Time: 1.0 Isovue 370 - 200ml contrast 60 ml given by Walter Darby MD. Complications: None. The patient was discharged out of the orthodontic lab technician in stable condition. Sedation minutes 23. Cardiac Rehab Consult needed: No. Confirmed administered medications: Yes [email or web address] 01:57 PM Isovue 370 - 200ml,1 Bottle(s) used. [email or web address] 01:57 PM Estimated Blood Loss: less than 20cc [email or web address] 01:57 PM Post ECG NSR [email or web address] 01:57 PM Post Blood Pressure 91/56 [email or web address] 01:58 PM 13:58 Post Pulses Rt Radial 1+ [email or web address] 01:58 PM Information taught Cardiac Cath and Vasc Band [email or web address] 01:58 PM Education needs Procedure, Plan of Care, and Disease Process [email or web address] 01:58 PM Learning barriers :Sedated [email or web address] 01:58 PM Education Methods Verbal [email or web address] 01:58 PM Education evaluation Needs further instruction [email or web address] 01:58 PM NIBP=96/58 mmhg 01:58 PM Site status No bleeding/ No Hematoma - Rt Wrist as reported by Gial Bowser RT (R) at 13:58 [email or web address] 01:59 PM Delay to floor No [email or web address] 01:59 PM Family placed in consult room. [email or web address] 01:59 PM Complications: None [email or web address] 01:59 PM Vitals capture stopped. 02:01 PM Patient out of room: 14:01 [email or web address] 02:03 PM Lesion found in Proximal RCA. Pre Stenosis: 15 Pre ELLI Flow: [email or web address] 02:05 PM Report given to beau EDIL Pt taken to 3B Room #14. 14:04 [email or web address] 02:05 PM Lesion found in Distal RCA. Pre Stenosis: 25 Pre ELLI Flow: [email or web address] 02:05 PM Lesion found in Mid LAD. Pre Stenosis: 15 Pre ELLI Flow: [email or web address] 02:05 PM Mid/Distal Left Anterior Descending Coronary Artery and diagonal branches with 15% stenosis. If graft is supplying this area, 0 % stenosis [email or web address] 02:06 PM Lesion found in Mid Circumflex. Pre Stenosis: 15 Pre ELLI Flow: [email or web address] 02:07 PM Time: 13:52 Patient comfortable and pain free: Yes [email or web address] 02:07 PM Time: 13:52LOC: 5 = Fully awake and oriented or at pre-proc level [email or web address] Complications Complication None None Hemodynamics Pressures Site Systolic/A Wave Diastolic/V Wave Mean AO 108 81 93 LV 90 9 14 LV 79 3 9 LV 90 11 17 AO 87 57 71 AO 95 63 77 Post Procedure Information Blood Pressure: 91/56 mmHg Rhythm: NSR Post procedural instructions were given Closure Device Time Device Success/Fail 02/04/2019 1:56:00 PM Mechanical Compression Successful Site Checks Time Location Status Staff Sheath In? Note 01:58 PM Rt Wrist No bleeding/ No Hematoma Gail Bowser RT (R) Pulses Time Site Pre-Procedure Post-Procedure Note 02/04/2019 1:36:00 PM Bilateral DP 2+ 02/04/2019 1:36:00 PM Bilateral radial 2+ 1:58:00 PM Rt Radial 1+ Updated by Elpidio Bain RT (R) on 02/04/2019 2:08:26 PM Elpidio Bain RT electronically signed on 02/04/2019 2:08:44 PM with status of Final
--- NOTE | 2019-02-04 14:37 | Discharge Summary ---
- NOTES TO OUTPATIENT PROVIDER Notes to Outpatient Provider: f/u with PCP in one week. f/u with Cardiology Dr. Mckenzie as scheduled. Please stop taking water pill Hydrochlorathiazide due to hyponatremia. Orders not resulted at time of discharge: Pending orders 02/02/19 16:01 Borrelia Species by PCR Routine Date of Encounter: 02/04/19 Time of Encounter: 14:37 - Discharge Diagnosis (1) Chest pain Priority: Primary Status: Acute Qualifiers: Chest pain type: unspecified Qualified Code(s): R07.9 - Chest pain, unspe cified (2) Hyponatremia Priority: Primary Status: Acute (3) Hypernatremia Priority: Secondary Status: Ruled-out (4) CAD (coronary artery disease) Priority: Secondary Status: Acute Qualifiers: Coronary Disease-Associated Artery/Lesion type: [place] artery [place] vs. transplanted heart: [place] heart Associated angina: with stable angina Qualified Code(s): I25.118 - Atherosclerotic heart disease of [place] coronary artery with other forms of angina pectoris (5) Tick bite Priority: Secondary Status: Acute Qualifiers: Encounter type: initial encounter Qualified Code(s): W57.XXXA - Bitten or stung by nonvenomous insect and other nonvenomous arthropods, initial encounter (6) HTN (hypertension) Priority: Secondary Status: Acute Qualifiers: Hypertension type: essential hypertension Qualified Code(s): I10 - Essential (primary) hypertension (7) HLD (hyperlipidemia) Priority: Secondary Status: Acute Qualifiers: Hyperlipidemia type: unspecified Qualified Code(s): E78.5 - Hyperlipidemia, unspecified (8) S/P AAA (abdominal aortic aneurysm) repair Priority: Secondary Status: Chronic Hospital course: Mr. Wise is a 63 year old male with a known past medical history of hypertension, hyperlipidemia, chronic tobacco dependence, CAD s/p PCI x 7 stents, AAA repair and revision who presented to ER with intermittent left chest wall pain from last 3 days. Pt stated he has been having intermittent CP, located left chest wall region, radiating to left shoulder, squeezing type of pain, and associated with SOB and nausea. He also mentioned mild lower abdominal discomfort. He does have multiple tick bites in the pelvic area lately when he was mowing a lawn at his newly bought property. In the ER his initial troponin was negative. His EKG did not show any acute ischemic changes. His sodium was slightly elevated @ 150 which seemed to be lab error since his repeated Na level came back as 127. 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 His serial troponin came back as negative. He did go for nuclear stress test which came back as negative for ischemia / infarction. However he still complained about dull achy chest pain. Cardiology evaluated the pt today and did LHC which did not show any acute lesions. Cardiology cleared him to d.c home. His hyponatremia improved with IV hydration. He did c/o tick bites so we ordered Lyme serology - Ab came back negative, [employer] is still pending. Pt did mention he had similar kind of pain when he had his AAA repaired. So I did US of Aorta which showed distal aorta measures 6.1 cm x 4.8 cm and has previously been repaired. Also noticed stable stents in b/l [place]. I am not able to do CTA of Abd / Pelvis now since he did go for nuclear stress test and LHC in last 24 hrs. So I talked to vascular surgery who recommended out pt CTA of Abd / Pelvis and f/u with him as an out pt. - Time Spent with Patient Total time spent providing and/or coordinating discharge services: - Discharge Medications Prescriptions: New Tramadol HCl [Ultram] 50 mg PO TID PRN 5 Days #15 tab PRN Reason: Headache Continued Omeprazole [PriLOSEC] 40 mg PO BID Lisinopril [Zestril] 20 mg PO BID Clopidogrel [Plavix] 75 mg PO DAILY Atorvastatin [Lipitor] 80 mg PO HS Ranolazine [Ranexa] 1,000 mg PO BID Aspirin [Adult Aspirin] 81 mg PO DAILY Metoprolol Succinate [Toprol Xl] 50 mg PO DAILY Discontinued hydroCHLOROthiazide [Hydrochlorothiazide] 25 mg PO DAILY Home Medications: Aspirin [Adult Aspirin] 81 mg PO DAILY 02/02/19 [History] Atorvastatin [Lipitor] 80 mg PO HS 02/02/19 [History] Clopidogrel [Plavix] 75 mg PO DAILY 02/02/19 [History] Lisinopril [Zestril] 20 mg PO BID 02/02/19 [History] Omeprazole [PriLOSEC] 40 mg PO BID 02/02/19 [History] Ranolazine [Ranexa] 1,000 mg PO BID 02/02/19 [History] Metoprolol Succinate [Toprol Xl] 50 mg PO DAILY 02/03/19 [History] Tramadol HCl [Ultram] 50 mg PO TID PRN 5 Days #15 tab 02/04/19 [Rx] Allergies/Adverse Reactions: Allergy/AdvReac Type Severity Reaction Status Date / Time No Known Allergies Allergy Verified 02/03/19 10:48 Date of admission: 02/02/19 14:17 Primary care physician: Damion Santana Consults: 02/04/19 08:01 Consult to Cardiology [CONS] Routine Comment: per hospitalist Consulting Provider: Cardiology Aarti Reason for Consult: chest pain Call Completed: Yes - Constitutional Vitals: Temp Pulse Resp BP Pulse Ox 98.1 F 54 16 114/74 95 02/04/19 11:13 02/04/19 11:13 02/04/19 11:13 02/04/19 11:13 02/04/19 11:13 General appearance: Present: cooperative, A&O X 3, no acute distress, answers questions appropriately Exam: Gen: Alert, awake, Oriented to time,place and person Chest: Diminished breath sounds B/L, No wheezing, No crackles, No rales Heart: S1S2+ RRR No murmurs Abd: Soft, NT, BS +, No organomegaly Ext: No edema, pulses are palpable, No calf tenderness Neuro : No acute focal neuro deficits noticed Skin: Insect bite salazar in pelvic region - Patient Status Disposition: Home, Self-Care Condition: Good Overall status at discharge: patient is back to baseline - Ambulatory Orders Ambulatory Orders: CT angio abdomen pelvis [CT] Time Frame: 02/09/19, Facility: [facility], Location: Radiology - Discharge Instructions Instructions: Chest Pain (DC), Chronic Hypertension (DC) Follow Up With: Damion Santana DO [Primary Care Provider] - 02/05/19 1:00 pm ([place] arrive 10 minutes early to appointment. ) Leonardo Oneill MD [Partnered Physician] - (Appointment has been requested.) Forms: ED Satisfaction Letter - Diet and Activity Activity: increase activity as tolerated Diet: low salt diet
[2019-02-04] MEDS ORDERED: Acetaminophen/Butalbital/CaffeineTABLET PO ONE (15:16)
[2019-02-04] MEDS ORDERED: Isovue-370 500 ML BOTTLE IVP ONE (15:36)
[2019-02-04 16:12] VITALS: BP 123/78
--- NOTE | 2019-02-05 15:08 | Electrocardiograph Report ---
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
== END 2019-02-04 18:50 | disposition home or self-care (01) ==
LOC: 3BNU 12:11 → EMEROOARM 12:11 → SUATTDRO 14:17 → 3BNU 14:35
PROVIDERS: ADMIT Internal Medicine; ATTEND Family Medicine

== ENCOUNTER 2019-04-21 18:03 | Observation (INO) ==
[2019-04-21] MEDS ORDERED: Isovue-370 500 ML BOTTLE IVP ONE (18:24)
[2019-04-21 18:41] LABS: Basophils # 0.1 K/mcL (0.0-0.2); Basophils % 0.8 %; Eosinophils # 0.4 K/mcL (0.0-0.6); Eosinophils % 3.9 %; Hematocrit 38.1 % (37.5-50.1); Hemoglobin 13.9 g/dL (12.9-16.9); Immature Granulocytes % 0.7 % (0-4); Lymphocytes # 2.1 K/mcL (0.6-4.6); Lymphocytes % 20.9 %; Mean Corpuscular HGB Conc 36.5 g/dL (31.6-35.5); Mean Corpuscular Hemoglobin 33.5 pg (28.0-33.3); Mean Corpuscular Volume 91.8 fL (83.0-100.0); Mean Platelet Volume 9.8 fL (9.4-12.4); Monocytes # 1.3 K/mcL (0.0-1.3); Monocytes % 12.4 %; Neutrophils # 6.2 K/mcL (1.6-8.9); Platelet Count 277 K/mcL (140-400); Red Blood Count 4.15 M/mcL (4.19-5.50); Red Cell Distribution Width 13.2 % (11.5-14.5); Segmented Neutrophils % 61.3 %; White Blood Count 10.2 K/mcL (4.3-11.1)
[2019-04-21 18:52] LABS: Prothrombin Time 11.4 Seconds (9.4-12.1)
[2019-04-21 18:54] LABS: Activated Partial Thrombo Time 32.2 Seconds (26.0-36.0)
[2019-04-21] MEDS ORDERED: Ondansetron 4 MG/2 ML VIAL IVP ONE (19:03)
[2019-04-21] MEDS ORDERED: *HR* FentaNYL (PF) 100 MCG/2 ML VIAL IVP ONE ×2 (19:04→20:53)
[2019-04-21 19:07] LABS: BUN/Creatinine Ratio 17 (6-26); Blood Urea Nitrogen 21 mg/dL (8-23); Calcium 8.9 mg/dL (8.6-10.3); Carbon Dioxide 24 mEq/L (23-29); Chloride 101 mEq/L (98-107); Glucose 79 mg/dL (70-105); Osmolality,Calculated 278 (280-300); Potassium 3.9 mEq/L (3.5-5.1); Sodium 133 mEq/L (136-145); Troponin I < 0.03 ng/mL (< 0.04); eGFR For African Americans > 60 (> 60); eGFR For Non-African Americans 57 (> 60)
[2019-04-21] MEDS ORDERED: Nitroglycerin 25 MG/250 ML INFUS..BTL IVC SCH (19:15)
[2019-04-21] MEDS ORDERED: Naloxone 0.4 MG/ML INJ IVP PRN (23:55)
[2019-04-22] MEDS ORDERED: 0.9 % Sodium Chloride 1,000 ML IVC ONE (01:15)
[2019-04-22] MEDS: Morphine Sulfate 2 MG/ML SYRINGE IVP PRN ×2 (02:49→05:23)
[2019-04-22] MEDS ORDERED: Ondansetron 4 MG/2 ML VIAL IVP ONE (05:18)
[2019-04-22] MEDS: *HR* Heparin 5,000 UNIT/ML VIAL SQ SCH ×2 (05:23→16:47)
[2019-04-22 06:44] LABS: Hematocrit 37.9 % (37.5-50.1); Hemoglobin 12.9 g/dL (12.9-16.9); Mean Corpuscular Hemoglobin 33.2 pg (28.0-33.3); Mean Corpuscular Volume 97.4 fL (83.0-100.0); Mean Platelet Volume 10.1 fL (9.4-12.4); Platelet Count 234 K/mcL (140-400); Red Blood Count 3.89 M/mcL (4.19-5.50); Red Cell Distribution Width 13.6 % (11.5-14.5); White Blood Count 7.9 K/mcL (4.3-11.1)
[2019-04-22 07:01] LABS: BUN/Creatinine Ratio 14 (6-26); Blood Urea Nitrogen 17 mg/dL (8-23); Calcium 8.7 mg/dL (8.6-10.3); Carbon Dioxide 27 mEq/L (23-29); Chloride 104 mEq/L (98-107); Glucose 92 mg/dL (70-105); Osmolality,Calculated 283 (280-300); Sodium 136 mEq/L (136-145); eGFR For African Americans > 60 (> 60); eGFR For Non-African Americans > 60 (> 60)
[2019-04-22] MEDS ORDERED: Acetaminophen 325 MG TABLET PO PRN (09:35)
[2019-04-22] MEDS ORDERED: *HR* OxyCODONE Immed Rel 5 MG TABLET PO PRN (09:35)
[2019-04-22] MEDS ORDERED: Ketorolac 15 MG/ML VIAL IVP ONE (11:35)
[2019-04-22] MEDS: Isosorbide MONOnitrate (24 HR) 30 MG TAB.ER.24H PO SCH (13:18)
[2019-04-22] MEDS: Metoprolol XL (24 HR) Succ 50 MG TAB.ER.24H PO SCH (13:18)
[2019-04-22] MEDS ORDERED: GI Cocktail 40 ML EACH PO ONE (13:21)
[2019-04-22] MEDS: Aspirin Enteric Coated 81 MG Tablet PO SCH (13:24)
[2019-04-22] MEDS: Ranolazine 500 MG TAB.ER.12H PO SCH (20:46)
[2019-04-23] MEDS: *HR* Heparin 5,000 UNIT/ML VIAL SQ SCH (04:46)
[2019-04-23] MEDS: Ranolazine 500 MG TAB.ER.12H PO SCH (07:41)
[2019-04-23] MEDS: Aspirin Enteric Coated 81 MG Tablet PO SCH (07:42)
[2019-04-23] MEDS: Isosorbide MONOnitrate (24 HR) 30 MG TAB.ER.24H PO SCH (10:14)
[2019-04-23] MEDS: Metoprolol XL (24 HR) Succ 50 MG TAB.ER.24H PO SCH (10:14)
[2019-04-23 10:15] VITALS: BP 112/70
== END 2019-04-23 12:43 | disposition home or self-care (01) ==
LOC: EMEROOARM 18:03 → 3BNU 18:03 → SUATTDRO 21:52 → 2NNU 22:01 → 2ANU 04-22 05:42
PROVIDERS: ADMIT Internal Medicine; ATTEND Internal Medicine

== ENCOUNTER 2019-08-21 19:46 | Observation (INO) ==
[2019-08-21] MEDS ORDERED: Aspirin 81 MG TAB.CHEW PO ONE (19:57)
[2019-08-21 20:16] LABS: Basophils # 0.1 K/mcL (0.0-0.2); Basophils % 0.7 %; Eosinophils # 0.4 K/mcL (0.0-0.6); Eosinophils % 3.6 %; Hemoglobin 13.7 g/dL (12.9-16.9); Immature Granulocytes % 0.6 % (0-4); Lymphocytes # 2.5 K/mcL (0.6-4.6); Lymphocytes % 20.3 %; Mean Corpuscular HGB Conc 34.3 g/dL (31.6-35.5); Mean Corpuscular Volume 96.4 fL (83.0-100.0); Mean Platelet Volume 10.5 fL (9.4-12.4); Monocytes # 1.2 K/mcL (0.0-1.3); Monocytes % 9.9 %; Neutrophils # 7.9 K/mcL (1.6-8.9); Platelet Count 218 K/mcL (140-400); Red Blood Count 4.15 M/mcL (4.19-5.50); Segmented Neutrophils % 64.9 %; White Blood Count 12.1 K/mcL (4.3-11.1)
[2019-08-21] MEDS ORDERED: Isovue-370 500 ML BOTTLE IVP ONE (20:17)
[2019-08-21 20:25] LABS: Prothrombin Time 11.7 Seconds (9.4-12.1)
[2019-08-21 20:35] LABS: BUN/Creatinine Ratio 17 (6-26); Blood Urea Nitrogen 22 mg/dL (8-23); Calcium 9.2 mg/dL (8.6-10.3); Carbon Dioxide 24 mEq/L (23-29); Chloride 104 mEq/L (98-107); Glucose 77 mg/dL (70-105); Osmolality,Calculated 280 (280-300); Potassium 3.9 mEq/L (3.5-5.1); Sodium 134 mEq/L (136-145); eGFR For African Americans > 60 (> 60); eGFR For Non-African Americans 56 (> 60)
[2019-08-21 20:36] LABS: Troponin I < 0.03 ng/mL (< 0.04)
[2019-08-21] MEDS ORDERED: *HR* FentaNYL (PF) 100 MCG/2 ML VIAL IVP ONE (21:30)
[2019-08-21] MEDS: Nitroglycerin 0.4 MG TAB.SUBL SL SCH ×2 (21:42→21:43)
[2019-08-22] MEDS ORDERED: Naloxone 0.4 MG/ML INJ IVP PRN (00:04)
[2019-08-22] MEDS ORDERED: Nitroglycerin 0.4 MG TAB.SUBL SL PRN (00:06)
[2019-08-22] MEDS: Acetaminophen 325 MG TABLET PO PRN (03:47)
[2019-08-22 05:43] LABS: Hemoglobin 13.4 g/dL (12.9-16.9); Mean Corpuscular HGB Conc 33.5 g/dL (31.6-35.5); Mean Corpuscular Hemoglobin 32.7 pg (28.0-33.3); Mean Corpuscular Volume 97.6 fL (83.0-100.0); Mean Platelet Volume 10.5 fL (9.4-12.4); Platelet Count 203 K/mcL (140-400)
[2019-08-22] MEDS: *HR* Heparin 5,000 UNIT/ML VIAL SQ SCH ×3 (05:54→19:45)
[2019-08-22 06:03] LABS: BUN/Creatinine Ratio 17 (6-26); Blood Urea Nitrogen 22 mg/dL (8-23); Carbon Dioxide 26 mEq/L (23-29); Chloride 108 mEq/L (98-107); Glucose 118 mg/dL (70-105); Osmolality,Calculated 288 (280-300); Potassium 3.9 mEq/L (3.5-5.1); Sodium 137 mEq/L (136-145); eGFR For African Americans > 60 (> 60); eGFR For Non-African Americans 54 (> 60)
[2019-08-22] MEDS ORDERED: lisinopriL 10 MG TABLET PO SCH (09:00)
[2019-08-22] MEDS: Isosorbide MONOnitrate (24 HR) 30 MG TAB.ER.24H PO SCH (10:23)
[2019-08-22] MEDS: Aspirin Enteric Coated 81 MG Tablet PO SCH (10:23)
[2019-08-22] MEDS: Ranolazine 500 MG TAB.ER.12H PO SCH ×2 (10:23→19:44)
[2019-08-22] MEDS: Metoprolol XL (24 HR) Succ 50 MG TAB.ER.24H PO SCH (11:04)
[2019-08-22] MEDS ORDERED: 0.9 % Sodium Chloride 1,000 ML IVC SCH (11:15)
[2019-08-22] MEDS ORDERED: Morphine Sulfate 2 MG/ML SYRINGE IVP ONE (23:24)
[2019-08-23 00:37] LABS: Calcium 8.9 mg/dL (8.6-10.3); Potassium 3.9 mEq/L (3.5-5.1)
[2019-08-23 00:58] LABS: Hematocrit 39.9 % (37.5-50.1); Hemoglobin 13.3 g/dL (12.9-16.9); Mean Corpuscular HGB Conc 33.3 g/dL (31.6-35.5); Mean Corpuscular Hemoglobin 32.9 pg (28.0-33.3); Mean Corpuscular Volume 98.8 fL (83.0-100.0); Mean Platelet Volume 11.1 fL (9.4-12.4); Platelet Count 200 K/mcL (140-400); Red Blood Count 4.04 M/mcL (4.19-5.50); White Blood Count 7.9 K/mcL (4.3-11.1)
[2019-08-23] MEDS: *HR* Heparin 5,000 UNIT/ML VIAL SQ SCH ×3 (05:51→21:02)
[2019-08-23] MEDS: Ondansetron 4 MG/2 ML VIAL IVP PRN (06:39)
[2019-08-23] MEDS ORDERED: Morphine Sulfate 2 MG/ML SYRINGE IVP ONE ×2 (10:17→18:09)
[2019-08-23] MEDS: Isosorbide MONOnitrate (24 HR) 30 MG TAB.ER.24H PO SCH (10:33)
[2019-08-23] MEDS: Ranolazine 500 MG TAB.ER.12H PO SCH ×2 (10:34→21:02)
[2019-08-23] MEDS: Aspirin Enteric Coated 81 MG Tablet PO SCH (10:34)
[2019-08-23] MEDS: Metoprolol XL (24 HR) Succ 50 MG TAB.ER.24H PO SCH (10:39)
[2019-08-23] MEDS ORDERED: Gadolinium Contrast Agent (WT Based) IV PRN (11:20)
[2019-08-23] MEDS ORDERED: 0.9 % Sodium Chloride 1,000 ML IVC SCH (11:30)
[2019-08-23] MEDS ORDERED: Isosorbide MONOnitrate (24 HR) 30 MG TAB.ER.24H PO ONE (12:44)
[2019-08-23] MEDS ORDERED: Nitroglycerin 1 INCH/GM PACKET TP ONE (15:27)
[2019-08-24 03:04] LABS: Bilirubin,Urine Negative (Negative); Blood,Urine Negative (Negative); Clarity,Urine Clear (Clear); Color,Urine Yellow (Yellow); Glucose,Urine (UA) Normal (Normal); Ketones,Urine Negative (Negative); Leukocyte Esterase,Urine Negative (Negative); Nitrite,Urine Negative (Negative); Protein,Urine Negative (Neg-Trace); Specific Gravity,Urine 1.018 (1.010-1.025); Urobilinogen,Urine Normal (Normal)
[2019-08-24 03:05] LABS: Hematocrit 37.8 % (37.5-50.1); Hemoglobin 12.7 g/dL (12.9-16.9); Mean Corpuscular HGB Conc 33.6 g/dL (31.6-35.5); Mean Corpuscular Hemoglobin 33.6 pg (28.0-33.3); Mean Platelet Volume 11.1 fL (9.4-12.4); Platelet Count 191 K/mcL (140-400); Red Blood Count 3.78 M/mcL (4.19-5.50); Red Cell Distribution Width 13.1 % (11.5-14.5); White Blood Count 8.1 K/mcL (4.3-11.1)
[2019-08-24 03:21] LABS: Creatinine,Urine 85 mg/dL; Microalbumin,Urine < 7 mg/L; Protein/Creatinine Ratio,Urine 0.05 mg/mg (0.00-0.20)
[2019-08-24 03:24] LABS: Albumin 3.3 g/dL (3.5-5.7); BUN/Creatinine Ratio 20 (6-26); Blood Urea Nitrogen 25 mg/dL (8-23); Calcium 8.5 mg/dL (8.6-10.3); Carbon Dioxide 24 mEq/L (23-29); Chloride 107 mEq/L (98-107); Glucose 91 mg/dL (70-105); Osmolality,Calculated 288 (280-300); Potassium 4.2 mEq/L (3.5-5.1); Sodium 137 mEq/L (136-145); eGFR For African Americans > 60 (> 60); eGFR For Non-African Americans 56 (> 60)
[2019-08-24] MEDS: *HR* Heparin 5,000 UNIT/ML VIAL SQ SCH ×3 (05:10→21:02)
[2019-08-24] MEDS: Acetaminophen 325 MG TABLET PO PRN (05:21)
[2019-08-24] MEDS: Isosorbide MONOnitrate (24 HR) 60 MG TAB.ER.24H PO SCH (08:01)
[2019-08-24] MEDS: Ranolazine 500 MG TAB.ER.12H PO SCH ×2 (08:02→21:02)
[2019-08-24] MEDS: Aspirin Enteric Coated 81 MG Tablet PO SCH (08:02)
[2019-08-24] MEDS: Metoprolol XL (24 HR) Succ 50 MG TAB.ER.24H PO SCH (08:02)
[2019-08-25] MEDS: *HR* Heparin 5,000 UNIT/ML VIAL SQ SCH (04:58)
[2019-08-25 05:42] LABS: Hematocrit 41.2 % (37.5-50.1); Hemoglobin 13.8 g/dL (12.9-16.9); Mean Corpuscular HGB Conc 33.5 g/dL (31.6-35.5); Mean Corpuscular Hemoglobin 32.7 pg (28.0-33.3); Mean Corpuscular Volume 97.6 fL (83.0-100.0); Mean Platelet Volume 11.1 fL (9.4-12.4); Platelet Count 213 K/mcL (140-400); Red Blood Count 4.22 M/mcL (4.19-5.50); Red Cell Distribution Width 12.9 % (11.5-14.5); White Blood Count 8.2 K/mcL (4.3-11.1)
[2019-08-25 05:59] LABS: Calcium 9.1 mg/dL (8.6-10.3); Potassium 4.1 mEq/L (3.5-5.1)
[2019-08-25] MEDS ORDERED: 0.9 % Sodium Chloride 1,000 ML IVC SCH (07:45)
[2019-08-25] MEDS: Isosorbide MONOnitrate (24 HR) 60 MG TAB.ER.24H PO SCH (08:06)
[2019-08-25] MEDS: Metoprolol XL (24 HR) Succ 50 MG TAB.ER.24H PO SCH (08:06)
[2019-08-25] MEDS: Ranolazine 500 MG TAB.ER.12H PO SCH (08:06)
[2019-08-25] MEDS: Aspirin Enteric Coated 81 MG Tablet PO SCH (08:07)
[2019-08-25] MEDS: Ondansetron 4 MG/2 ML VIAL IVP PRN (09:47)
[2019-08-25 11:04] VITALS: BP 99/67
[2019-08-25 14:13] LABS: BUN/Creatinine Ratio 18 (6-26); Blood Urea Nitrogen 25 mg/dL (8-23); Calcium 9.3 mg/dL (8.6-10.3); Carbon Dioxide 24 mEq/L (23-29); Chloride 107 mEq/L (98-107); Glucose 119 mg/dL (70-105); Osmolality,Calculated 288 (280-300); Potassium 4.3 mEq/L (3.5-5.1); Sodium 136 mEq/L (136-145); eGFR For African Americans > 60 (> 60); eGFR For Non-African Americans 52 (> 60)
== END 2019-08-25 18:07 | disposition home or self-care (01) ==
LOC: 3BNU 19:46 → EMEROOARM 19:46 → 3BNU 08-22 00:09
PROVIDERS: ADMIT Student in an Organized Health Care Education/Training Program; ATTEND Student in an Organized Health Care Education/Training Program

== ENCOUNTER 2020-04-07 18:29 | Inpatient (IN) ==
[2020-04-07] MEDS ORDERED: Isovue-370 500 ML BOTTLE IVP ONE (19:30)
[2020-04-07 19:54] LABS: Basophils # 0.1 K/mcL (0.0-0.2); Basophils % 0.5 %; Eosinophils # 0.1 K/mcL (0.0-0.6); Eosinophils % 0.9 %; Hematocrit 44.4 % (37.5-50.1); Hemoglobin 14.8 g/dL (12.9-16.9); Immature Granulocytes % 0.5 % (0-4); Lymphocytes # 1.5 K/mcL (0.6-4.6); Lymphocytes % 11.4 %; Mean Corpuscular HGB Conc 33.3 g/dL (31.6-35.5); Mean Corpuscular Volume 93.1 fL (83.0-100.0); Mean Platelet Volume 10.7 fL (9.4-12.4); Monocytes # 1.6 K/mcL (0.0-1.3); Neutrophils # 9.7 K/mcL (1.6-8.9); Platelet Count 231 K/mcL (140-400); Red Blood Count 4.77 M/mcL (4.19-5.50); Red Cell Distribution Width 13.2 % (11.5-14.5); Segmented Neutrophils % 74.7 %; White Blood Count 12.9 K/mcL (4.3-11.1)
[2020-04-07 20:08] LABS: BUN/Creatinine Ratio 14 (6-26); Blood Urea Nitrogen 16 mg/dL (8-23); Calcium 9.6 mg/dL (8.6-10.3); Carbon Dioxide 27 mEq/L (23-29); Chloride 100 mEq/L (98-107); Glucose 93 mg/dL (70-105); Osmolality,Calculated 281 (280-300); Potassium 4.1 mEq/L (3.5-5.1); Sodium 135 mEq/L (136-145); eGFR For African Americans > 60 (> 60); eGFR For Non-African Americans > 60 (> 60)
[2020-04-07] MEDS ORDERED: *HR* FentaNYL (PF) 100 MCG/2 ML VIAL IVP ONE (20:11)
[2020-04-07] MEDS ORDERED: MetroNIDAZOLE 500 MG/100 ML 500 MG/100 ML BAG IVPB ONE (20:12)
[2020-04-07 20:24] LABS: Bilirubin,Urine Negative (Negative); Blood,Urine Small (Negative); Clarity,Urine Clear (Clear); Color,Urine Yellow (Yellow); Glucose,Urine (UA) Normal (Normal); Ketones,Urine Negative (Negative); Leukocyte Esterase,Urine Negative (Negative); Mucus,Urine Few per lpf (None-Few); Nitrite,Urine Negative (Negative); Protein,Urine Trace mg/dL (Neg-Trace); RBC,Urine 0-3 per hpf (0-3); Specific Gravity,Urine 1.022 (1.010-1.025); Urobilinogen,Urine Normal (Normal); WBC,Urine 0-3 per hpf (0-3)
[2020-04-07] MEDS ORDERED: Acetaminophen 325 MG TABLET PO ONE (21:09)
[2020-04-07] MEDS ORDERED: Naloxone 0.4 MG/ML INJ IVP PRN (21:31)
[2020-04-07] MEDS ORDERED: Acetaminophen 325 MG TABLET PO PRN (22:25)
[2020-04-07] MEDS: Ringers Solution, Lactated 1,000 ML IVC SCH (22:42)
[2020-04-07] MEDS: *HR* OxyCODONE Immed Rel 5 MG TABLET PO PRN (22:42)
[2020-04-07] MEDS ORDERED: Nitroglycerin 0.4 MG TAB.SUBL SL PRN (23:30)
[2020-04-08] MEDS: *HR* HYDROcodone/Acet 5/325 mg TABLET PO PRN ×3 (01:19→23:19)
[2020-04-08 01:39] LABS: Basophils # 0.1 K/mcL (0.0-0.2); Basophils % 0.6 %; Eosinophils # 0.2 K/mcL (0.0-0.6); Eosinophils % 1.1 %; Hematocrit 43.3 % (37.5-50.1); Hemoglobin 14.3 g/dL (12.9-16.9); Immature Granulocytes % 0.4 % (0-4); Lymphocytes # 2.1 K/mcL (0.6-4.6); Lymphocytes % 16.2 %; Mean Corpuscular Hemoglobin 31.3 pg (28.0-33.3); Mean Corpuscular Volume 94.7 fL (83.0-100.0); Mean Platelet Volume 11.1 fL (9.4-12.4); Monocytes # 1.5 K/mcL (0.0-1.3); Monocytes % 11.8 %; Neutrophils # 9.1 K/mcL (1.6-8.9); Platelet Count 221 K/mcL (140-400); Red Blood Count 4.57 M/mcL (4.19-5.50); Red Cell Distribution Width 13.5 % (11.5-14.5); Segmented Neutrophils % 69.9 %; White Blood Count 13.1 K/mcL (4.3-11.1)
[2020-04-08 02:01] LABS: BUN/Creatinine Ratio 15 (6-26); Blood Urea Nitrogen 17 mg/dL (8-23); Calcium 9.1 mg/dL (8.6-10.3); Carbon Dioxide 23 mEq/L (23-29); Chloride 102 mEq/L (98-107); Glucose 115 mg/dL (70-105); Osmolality,Calculated 280 (280-300); Potassium 3.9 mEq/L (3.5-5.1); Sodium 134 mEq/L (136-145); eGFR For African Americans > 60 (> 60); eGFR For Non-African Americans > 60 (> 60)
[2020-04-08] MEDS: Ondansetron 4 MG/2 ML VIAL IVP PRN (03:30)
[2020-04-08] MEDS: MetroNIDAZOLE 500 MG/100 ML 500 MG/100 ML BAG IVPB SCH ×3 (04:28→20:18)
[2020-04-08] MEDS: *HR* OxyCODONE Immed Rel 5 MG TABLET PO PRN ×3 (04:32→20:35)
[2020-04-08] MEDS: *HR* Enoxaparin 40 MG/0.4 ML SYRINGE SQ SCH (05:28)
[2020-04-08] MEDS: lisinopriL 10 MG TABLET PO SCH (08:03)
[2020-04-08] MEDS: Aspirin Enteric Coated 81 MG Tablet PO SCH (08:03)
[2020-04-08] MEDS: Ringers Solution, Lactated 1,000 ML IVC SCH ×2 (08:14→13:31)
[2020-04-09] MEDS: Ringers Solution, Lactated 1,000 ML IVC SCH ×4 (00:19→23:44)
[2020-04-09] MEDS: MetroNIDAZOLE 500 MG/100 ML 500 MG/100 ML BAG IVPB SCH ×3 (03:06→19:15)
[2020-04-09] MEDS: *HR* OxyCODONE Immed Rel 5 MG TABLET PO PRN ×2 (03:12→09:22)
[2020-04-09] MEDS: *HR* HYDROcodone/Acet 5/325 mg TABLET PO PRN ×2 (05:25→19:21)
[2020-04-09] MEDS: *HR* Enoxaparin 40 MG/0.4 ML SYRINGE SQ SCH (05:25)
[2020-04-09 09:16] LABS: Hematocrit 37.3 % (37.5-50.1); Mean Corpuscular HGB Conc 33.2 g/dL (31.6-35.5); Mean Corpuscular Volume 96.4 fL (83.0-100.0); Mean Platelet Volume 10.7 fL (9.4-12.4); Platelet Count 190 K/mcL (140-400); Red Blood Count 3.87 M/mcL (4.19-5.50); Red Cell Distribution Width 13.2 % (11.5-14.5); White Blood Count 6.8 K/mcL (4.3-11.1)
[2020-04-09 09:17] LABS: Hemoglobin 12.4 g/dL (12.9-16.9)
[2020-04-09] MEDS: Aspirin Enteric Coated 81 MG Tablet PO SCH (09:22)
[2020-04-09] MEDS: lisinopriL 10 MG TABLET PO SCH (09:22)
[2020-04-09 09:37] LABS: BUN/Creatinine Ratio 12 (6-26); Blood Urea Nitrogen 12 mg/dL (8-23); Calcium 8.3 mg/dL (8.6-10.3); Carbon Dioxide 25 mEq/L (23-29); Chloride 103 mEq/L (98-107); Glucose 113 mg/dL (70-105); Osmolality,Calculated 279 (280-300); Potassium 3.7 mEq/L (3.5-5.1); Sodium 134 mEq/L (136-145); eGFR For African Americans > 60 (> 60); eGFR For Non-African Americans > 60 (> 60)
[2020-04-09] MEDS: Ondansetron 4 MG/2 ML VIAL IVP PRN ×2 (10:42→23:44)
[2020-04-10 02:36] LABS: Hematocrit 36.7 % (37.5-50.1); Hemoglobin 12.4 g/dL (12.9-16.9); Mean Corpuscular HGB Conc 33.8 g/dL (31.6-35.5); Mean Corpuscular Hemoglobin 32.5 pg (28.0-33.3); Mean Corpuscular Volume 96.3 fL (83.0-100.0); Mean Platelet Volume 10.6 fL (9.4-12.4); Platelet Count 199 K/mcL (140-400); Red Blood Count 3.81 M/mcL (4.19-5.50); White Blood Count 6.9 K/mcL (4.3-11.1)
[2020-04-10 02:55] LABS: BUN/Creatinine Ratio 9 (6-26); Blood Urea Nitrogen 9 mg/dL (8-23); Calcium 8.6 mg/dL (8.6-10.3); Carbon Dioxide 27 mEq/L (23-29); Chloride 104 mEq/L (98-107); Glucose 83 mg/dL (70-105); Osmolality,Calculated 280 (280-300); Potassium 4.3 mEq/L (3.5-5.1); Sodium 136 mEq/L (136-145); eGFR For African Americans > 60 (> 60); eGFR For Non-African Americans > 60 (> 60)
[2020-04-10] MEDS: MetroNIDAZOLE 500 MG/100 ML 500 MG/100 ML BAG IVPB SCH ×3 (04:40→19:27)
[2020-04-10] MEDS: *HR* Enoxaparin 40 MG/0.4 ML SYRINGE SQ SCH (04:40)
[2020-04-10] MEDS ORDERED: Isovue-370 500 ML BOTTLE IVP ONE (07:40)
[2020-04-10] MEDS: Ringers Solution, Lactated 1,000 ML IVC SCH ×2 (08:39→11:54)
[2020-04-10] MEDS: Aspirin Enteric Coated 81 MG Tablet PO SCH (08:40)
[2020-04-10] MEDS: lisinopriL 10 MG TABLET PO SCH (08:40)
[2020-04-10] MEDS: Ondansetron 4 MG/2 ML VIAL IVP PRN (11:44)
[2020-04-10] MEDS: *HR* HYDROcodone/Acet 5/325 mg TABLET PO PRN (21:19)
[2020-04-11] MEDS: Ringers Solution, Lactated 1,000 ML IVC SCH ×2 (03:32→11:01)
[2020-04-11] MEDS: MetroNIDAZOLE 500 MG/100 ML 500 MG/100 ML BAG IVPB SCH (03:32)
[2020-04-11] MEDS: *HR* Enoxaparin 40 MG/0.4 ML SYRINGE SQ SCH (05:36)
[2020-04-11 07:28] VITALS: BP 124/78
[2020-04-11] MEDS: lisinopriL 10 MG TABLET PO SCH (08:39)
[2020-04-11] MEDS: Aspirin Enteric Coated 81 MG Tablet PO SCH (08:39)
== END 2020-04-11 12:52 | disposition home or self-care (01) | DRG 392 ==
LOC: EMEROOARM 18:29 → 3BNU 18:29
PROVIDERS: ADMIT Family Medicine; ATTEND Family Medicine